=== PATIENT | female | born 1950 | race Caucasian/White ===

== ENCOUNTER 2017-03-29 09:52 | Inpatient (IN) | payer OTHER ==
--- NOTE | 2017-03-29 10:12 | PDOC ---
History of Present Illness - General Chief Complaint: Respiratory Stated Complaint: SOB Time Seen by Provider: 03/29/17 10:12 - History of Present Illness Initial Comments: 03/29/17 10:19 Ms. Rutledge is a 66 yo female w/ pmh of anxiety and htn who presents c/o a 4-5 day history of severe, non-productive cough with runny nose and subjective fever and chills. She says she has tried over the counter cold medicine and tylenol/advil without relief. She comes in today because she wanted to be checked out and "couldn't deal with it anymore." The patient denies chest pain, headache and dizziness. Denies nausea, vomit, diarrhea and constipation. Denies dysuria, frequency, urgency and hematuria. Allergies: NKDA Past History - Past Medical History Allergies/Adverse Reactions: Allergies Allergy/AdvReac Type Severity Reaction Status Date / Time No Known Allergies Allergy Verified 03/29/17 11:02 Home Medications: Ambulatory Orders Bupropion HCl [Wellbutrin -] 300 mg PO DAILY 03/29/17 Citalopram Hydrobromide [Celexa -] 10 mg PO DAILY 03/29/17 Ibuprofen [Motrin -] 400 mg PO DAILY 03/29/17 Lorazepam 2 mg PO DAILY 03/29/17 - Suicide/Smoking/Psychosocial Hx Smoking History: Never smoked Have you smoked in the past 12 months: No Hx Alcohol Use: No Drug/Substance Use Hx: No Review of Systems - Review of Systems Comments:: 03/29/17 10:23 GENERAL/CONSTITUTIONAL: Fever / chills as described above. +Also complains of feeling weaker than normal. HEAD, EYES, EARS, NOSE AND THROAT: No change in vision. No ear pain or discharge. No sore throat. CARDIOVASCULAR: No chest pain or shortness of breath RESPIRATORY: +Non-productive cough. No wheezing or hemoptysis. GASTROINTESTINAL: No nausea, vomiting, diarrhea or constipation. GENITOURINARY: No dysuria, frequency, or change in urination. MUSCULOSKELETAL: No joint or muscle swelling or pain. No neck or back pain. SKIN: No rash NEUROLOGIC: No headache, vertigo, loss of consciousness, or change in strength/ sensation. ENDOCRINE: No increased thirst. No abnormal weight change HEMATOLOGIC/LYMPHATIC: No anemia, easy bleeding, or history of blood clots. ALLERGIC/IMMUNOLOGIC: No hives or skin allergy. *Physical Exam - Vital Signs Last Vital Signs Temp Pulse Resp BP Pulse Ox 98.2 F 97 H 19 98/78 95 03/29/17 10:08 03/29/17 10:08 03/29/17 10:08 03/29/17 10:08 03/29/17 10:08 - Physical Exam Comments: 03/29/17 10:25 GENERAL: Awake, alert, and fully oriented, in no acute distress HEAD: No signs of trauma, normocephalic, atraumatic EYES: PERRLA, EOMI, sclera anicteric, conjunctiva clear ENT: Auricles normal inspection, hearing grossly normal, nares patent, oropharynx clear without exudates. Moist mucosa NECK: Normal ROM, supple, no lymphadenopathy, JVD, or masses LUNGS: +Hacking cough appreciated on exam. Diffuse rhonchi noted throughout lung rutledge. HEART: Regular rate and rhythm, normal S1 and S2, no murmurs, rubs or gallops, peripheral pulses normal and equal bilaterally. ABDOMEN: Soft, nontender, normoactive bowel sounds. No guarding, no rebound. No masses EXTREMITIES: Normal inspection, Normal range of motion, no edema. No clubbing or cyanosis. NEUROLOGICAL: Cranial nerves II through XII grossly intact. Normal speech, normal gait, no focal sensorimotor deficits SKIN: Warm, Dry, normal turgor, no rashes or lesions noted. ED Treatment Course - LABORATORY CBC & Chemistry Diagram: 03/29/17 10:45 03/29/17 10:45 Medical Decision Making - Medical Decision Making 03/29/17 11:05 Initial labs revealed WBC of 23.9. This along with systolic BP in 80's prompted sepsis protocol workup. 03/29/17 12:03 CXR revealed lobar pneumonia, will admit patient to inpatient service for further care. *DC/Admit/Observation/Transfer Diagnosis at time of Disposition: Sepsis Qualifiers: Sepsis type: sepsis due to unspecified organism Qualified Code(s): A41.9 - Sepsis, unspecified organism - Discharge Dispostion Admit: Yes - Referrals - Patient Instructions - Post Discharge Activity
--- NOTE | 2017-03-29 10:18 | PDOC ---
Attending Attestation - Resident Resident Name: Adrian Velazco - HPI HPI: 03/29/17 16:41 Pt presents to the ED complaining of generalized malaise, along with productive cough and shortness of breath for one week. - Physicial Exam PE: 03/29/17 16:43 Agree with resident exam. + Crackles in the bases bilaterally. - Medical Decision Making 03/29/17 16:44 Pt presents to the ED complaining of generalized malaise, cough and shortness of breath. + PNA on chest xray. Patient was initially mildly hypotensive, improving in response to fluids. Will treat with zithromax and ceftriaxone and admit to medicine.
[2017-03-29] MEDS ORDERED: SODIUM CHLORIDE 1,000 ML IV STA ×3 (10:28→11:30)
[2017-03-29] MEDS ORDERED: ALBUTEROL SO4 2.5/IPRATROPIUM 0.5 INH SOL 3 ML VIAL.NEB. NEB ONE (10:28)
[2017-03-29 10:56] LABS: MCH 29.9 pg (25.7-33.7); MCHC 33.4 g/dl (32.0-36.0); MEAN CELL VOLUME 89.3 fl (80-96); PLATELET COUNT 200 K/MM3 (134-434); WHITE BLOOD COUNT 23.9 K/mm3 (4.0-10.0)
[2017-03-29 11:14] LABS: ALK PHOS 294 U/L (45-117); ANION GAP 11 (8-16); BILIRUBIN,TOTAL 1.9 mg/dL (0.2-1.0); CALCIUM 8.4 mg/dL (8.5-10.1); CO2 24 mmol/L (21-32); GLUCOSE,RANDOM 76 mg/dL (74-106); SGOT/AST 24 U/L (15-37); SGPT/ALT 33 U/L (12-78); TOT PROT 5.1 g/dl (6.4-8.2)
[2017-03-29 11:30] LABS: VENOUS BLOOD GAS HCO3 21.1 meq/L (19-25); VENOUS PH 7.38 (7.32-7.42)
[2017-03-29 11:33] LABS: INR 1.19 (0.82-1.09); PROTHROMBIN TIME (PATIENT) 13.5 SEC (9.98-11.88)
[2017-03-29 11:34] LABS: CPK 42 IU/L (26-192)
[2017-03-29] MEDS ORDERED: CEFTRIAXONE 1 GM in DEXTROSE 5%-WATER - 100 ML IVPB ONE (11:34)
[2017-03-29] MEDS ORDERED: AZITHROMYCIN 500 MG TABLET PO ONE (11:35)
[2017-03-29 11:36] LABS: ACTIVATED PTT 34.4 SECONDS (26.9-34.4)
[2017-03-29] MEDS ORDERED: AZITHROMYCIN 500 MG TABLET ONE (11:40)
[2017-03-29 11:49] LABS: TROPONIN I < 0.02 ng/ml (0.00-0.05)
[2017-03-29 12:52] LABS: PLATELET COMMENTS NO CLUMPING NOTED; PLATELET ESTIMATE ADEQUATE
--- NOTE | 2017-03-29 13:27 | EKG ---
Test Reason : Blood Pressure : / mmHG Vent. Rate : 091 BPM Atrial Rate : 091 BPM P-R Int : 156 ms QRS Dur : 094 ms QT Int : 388 ms P-R-T Axes : 035 -12 033 degrees QTc Int : 477 ms NORMAL SINUS RHYTHM WITH SINUS ARRHYTHMIA NORMAL ECG NO PREVIOUS ECGS AVAILABLE Confirmed by AMINAH MINAYA MD ([id number]) on 03/29/2017 1:27:05 PM Referred By: Confirmed By:AMINAH MINAYA MD
[2017-03-29 14:39] VITALS: BMI 32.1
--- NOTE | 2017-03-29 17:42 | HP ---
Admitting History and Physical - Primary Care Physician PCP: Fermin Jurado - Admission History of Present Illness: Ms. Mcdowell is a 66 yo female w/ pmh of anxiety and htn who presents c/o a 4-5 day history of severe, non-productive cough with runny nose and subjective fever and chills. She says she has tried over the counter cold medicine and tylenol/advil without relief. She comes in today because she wanted to be checked out and "couldn't deal with it anymore." - Past Medical History Psych: Yes: Anxiety - Smoking History Smoking history: Never smoked Have you smoked in the past 12 months: No - Alcohol/Substance Use Hx Alcohol Use: No Home Medications - Allergies Allergies/Adverse Reactions: Allergies Allergy/AdvReac Type Severity Reaction Status Date / Time No Known Allergies Allergy Verified 03/29/17 11:02 - Home Medications Home Medications: Ambulatory Orders Bupropion HCl [Wellbutrin -] 300 mg PO DAILY 03/29/17 Citalopram Hydrobromide [Celexa -] 10 mg PO DAILY 03/29/17 Ibuprofen [Motrin -] 800 mg PO BID 03/29/17 Lorazepam 2 mg PO HS 03/29/17 Physical Examination Vital Signs: Vital Signs Temperature 98.7 F 03/29/17 14:36 Pulse Rate 89 03/29/17 14:36 Respiratory Rate 21 03/29/17 14:36 Blood Pressure 101/65 03/29/17 14:36 O2 Sat by Pulse Oximetry (%) 96 03/29/17 14:55 Constitutional: Yes: No Distress HENT: Yes: Atraumatic Neck: Yes: Supple Cardiovascular: Yes: Regular Rate and Rhythm Respiratory: Yes: Rhonchi Gastrointestinal: Yes: Normal Bowel Sounds Extremities: Yes: WNL Neurological: Yes: Alert, Oriented Labs: CBC, BMP 03/29/17 10:45 03/29/17 10:45 Problem List - Problems (1) Sepsis Code(s): A41.9 - SEPSIS, UNSPECIFIED ORGANISM Qualifiers: Sepsis type: sepsis due to unspecified organism Qualified Code(s): A41.9 - Sepsis, unspecified organism Assessment/Plan Laboratory Tests 03/29/17 03/29/17 03/29/17 10:45 10:45 11:00 WBC 23.9 H RBC 3.74 Hgb 11.2 Hct 33.4 MCV 89.3 MCH 29.9 MCHC 33.4 RDW 14.0 Plt Count 200 MPV 10.0 Neutrophils % No Result Required. Neutrophils % (Manual) 86.0 H Band Neutrophils % 7.0 Lymphocytes % No Result Required. Lymphocytes % (Manual) 4.0 L Monocytes % (Manual) 3 L Eosinophils % (Manual) 0.0 Basophils % (Manual) 0.0 Platelet Estimate Adequate Platelet Comment No clumping noted PT with INR 13.50 H INR 1.19 H PTT (Actin FS) 34.4 VBG pH POC VBG pCO2 POC VBG pO2 Mixed VBG HCO3 Sodium 135 L Potassium 3.5 Chloride 100 Carbon Dioxide 24 Anion Gap 11 BUN 40 H Creatinine 2.0 H Creat Clearance w eGFR 25.01 Random Glucose 76 Lactic Acid Calcium 8.4 L Total Bilirubin 1.9 H AST 24 ALT 33 Alkaline Phosphatase 294 H Creatine Kinase 42 Troponin I < 0.02 Total Protein 5.1 L Albumin 2.0 L Blood Type Antibody Screen 03/29/17 03/29/17 03/29/17 11:10 11:26 11:30 WBC RBC Hgb Hct MCV MCH MCHC RDW Plt Count MPV Neutrophils % Neutrophils % (Manual) Band Neutrophils % Lymphocytes % Lymphocytes % (Manual) Monocytes % (Manual) Eosinophils % (Manual) Basophils % (Manual) Platelet Estimate Platelet Comment PT with INR INR PTT (Actin FS) VBG pH 7.38 POC VBG pCO2 36.7 L POC VBG pO2 46.3 Mixed VBG HCO3 21.1 Sodium Potassium Chloride Carbon Dioxide Anion Gap BUN Creatinine Creat Clearance w eGFR Random Glucose Lactic Acid 1.6 Calcium Total Bilirubin AST ALT Alkaline Phosphatase Creatine Kinase Troponin I Total Protein Albumin Blood Type A POSITIVE Antibody Screen Negative Active Medications Generic Name Dose Route Start Last Admin Trade Name Freq PRN Reason Stop Dose Admin Bupropion HCl 300 mg 03/30/17 10:00 Wellbutrin - PO DAILY [facility] Citalopram Hydrobromide 10 mg 03/30/17 10:00 Celexa - PO DAILY [facility] Azithromycin 500 mg/ Dextrose 250 mls @ 250 mls/hr 03/30/17 10:00 IVPB DAILY [facility] CEFTRIAXONE 1 G/50 ML PREMIX 1 mls @ 200 mls/hr 03/30/17 10:00 Ceftriaxone 1 Gm-D5w Bag IVPB 03/30/17 11:59 DAILY [facility] Lorazepam 2 mg 03/29/17 22:00 Ativan - PO HS [facility]
[2017-03-29 19:31] LABS: URINE APPEARANCE CLEAR; URINE BILIRUBIN NEGATIVE (NEGATIVE); URINE BLOOD 1+ (NEGATIVE); URINE COLOR YELLOW; URINE GLUCOSE (UA) NEGATIVE (NEGATIVE); URINE KETONE NEGATIVE (NEGATIVE); URINE NITRITE NEGATIVE (NEGATIVE); URINE PROTEIN NEGATIVE (NEGATIVE); URINE UROBILINOGEN NEGATIVE mg/dL (0.2-1.0)
[2017-03-29] MEDS: LORazepam 1 MG TABLET PO SCH (21:24)
[2017-03-29 22:16] LABS: URINE LEUK ESTERASE Negative (NEGATIVE)
[2017-03-30] MEDS ORDERED: PT OWN MED DRAWER 7, Y5N ONE (09:41)
[2017-03-30] MEDS ORDERED: CEFTRIAXONE 1 G/50 ML PREMIX 1 ML IVPB SCH (10:00)
[2017-03-30] MEDS: AZITHROMYCIN IVPB 500 MG in DEXTROSE 5%-WATER - 250 ML IVPB SCH (10:20)
[2017-03-30] MEDS: CITALOPRAM HYDROBROMIDE 10 MG TABLET (FP) PO SCH (10:21)
[2017-03-30] MEDS ORDERED: cefTRIAXone 1 GM/50 ML BAG (PRE-DOCKED) IVPB ONE (12:16)
[2017-03-30 12:41] LABS: MCH 29.9 pg (25.7-33.7); MCHC 33.7 g/dl (32.0-36.0); MEAN CELL VOLUME 88.8 fl (80-96); MEAN PLT VOLUME 9.9 fl (7.5-11.1); PLATELET COUNT 178 K/MM3 (134-434); WHITE BLOOD COUNT 17.3 K/mm3 (4.0-10.0)
--- NOTE | 2017-03-30 12:43 | CON.ID ---
Consult Consult Specialty:: Infectious Disease Reason for Consultation:: PNA - History of Present Illness History of Present Illness: Pt seen and examined, notes and labs reviewed. This is a 66 y.o female with history of anxiety and asthma presenting from the community with complaints of non-productive cough, rhinorrhea, diaphoresis, subjective fever,and malaise. States symptoms began 5 days ago and has progressively gotten worse. She also says that she was taking asthma inhalers before but stopped because she couldn' t afford it. She denies any recent travel but her son had a "cold" recently. She denies any previous hospitalization. In the ER she was noted to have hypotension and tachycardia and lab work reveals a significant elevation in wbc count and elevated BUN and Creatinine. She was started on antibiotics and IV fluids. Currently with cough and pleuritic chest pain but remains afebrile and alert. Denies having any other complaints. - History Source History Provided By: Patient Limitations to Obtaining History: No Limitations - Past Medical History [employer]: No: Alzheimer's, CVA, Dementia, Migraine, Multiple Sclerosis, Peripheral Neuropathy, Parkinson's, Seizure, Syncope, TIA, Vertigo, Other Cardio/Vascular: No: AFIB, Aneurysm, Aortic Insufficiency, Aortic Stenosis, CAD , CHF, Deep Vein Thrombosis, HTN, Hyperlipdemia, IA, Mitral Insufficiency, Mitral Stenosis, Murmur, Pulmonary Hypertension, Other Pulmonary: Yes: Asthma Gastrointestinal: No: Ascites, Cancer, Constipation, Crohn's Disease, Diverticulitis, Diverticulosis, Esophageal Varices, Gastritis, GERD, GI Bleed, Hemorrhoids, Hiatal Hernia, Inflamatory Bowel Disease, Irritable Bowel Disease, Pancreatitis, Peptic Ulcer Disease, Ulcerative Colitis, Other Hepatobiliary: No: Cirrhosis, Cholelithiasis, Cholecystitis, Choledocholithiasis , Hepatitis A, Hepatitis B, Hepatitis C, Other Renal/: No: Renal Failure, Renal Inusuff, BPH, Cancer, Hematuria, Hemodialysis , Neurogenic Bladder, Renal Calculi, UTI, Other Heme/Onc: No: Anemia, B12 Deficiency, Bleeding Disorder, Cancer, Current Chemotherapy, Current Radiation Therapy, Hemochromatosis, Hypercoaguable State, Myeloproliferative Synd, Sickle Cell Disease, Sickle Cell Trait, Thrombocytopenia, Other Infectious Disease: No: AIDS, C-Diff, Herpes Zoster, HIV, MRSA, STD's, Tuberculosis, VREF, Other Psych: Yes: Anxiety Musculoskeletal: No: Bursitis, Chronic low back pain, Hemiparesis, Hemiplegia, Osteoarthritis, Paraplegia, Other Rheumatology: No: Fibromyalgia, Gout, Lupus, Rheumatoid Arthritis, Sarcoidosis, Vasculitis, Other ENT: No: Allergic Rhinitis, Sinusitis, Other Endocrine: No: Scott's Disease, Court's Disease, Diabetes Insipidus, Diabetes Mellitus, Hyperparathyroidism, Hyperthyroidism, Hypothyroidism, Osteopenia, SIADH, Other Dermatology: No: Basal Cell, Cellulitis, Eczema, Melanoma, Psoriasis, Squamous Cell, Other - Past Surgical History Past Surgical History: Yes: None - Alcohol/Substance Use Hx Alcohol Use: No - Smoking History Smoking history: Never smoked Have you smoked in the past 12 months: No Home Medications - Allergies Allergies/Adverse Reactions: Allergies Allergy/AdvReac Type Severity Reaction Status Date / Time No Known Allergies Allergy Verified 03/29/17 11:02 - Home Medications Home Medications: Ambulatory Orders Bupropion HCl [Wellbutrin -] 300 mg PO DAILY 03/29/17 Citalopram Hydrobromide [Celexa -] 10 mg PO DAILY 03/29/17 Ibuprofen [Motrin -] 800 mg PO BID 03/29/17 Lorazepam 2 mg PO HS 03/29/17 Review of Systems - Review of Systems Constitutional: reports: Malaise, Other (diaphoresis) Eyes: reports: No Symptoms HENT: reports: Nasal Congestion Neck: reports: No Symptoms Cardiovascular: reports: No Symptoms Respiratory: reports: Cough, Wheezing Gastrointestinal: reports: No Symptoms Genitourinary: reports: Other (incontinence due to cough) Breasts: reports: No Symptoms Reported Musculoskeletal: reports: No Symptoms Integumentary: reports: No Symptoms Neurological: reports: No Symptoms Endocrine: reports: No Symptoms Hematology/Lymphatic: reports: No Symptoms Psychiatric: reports: Anxiety Physical Exam Vital Signs: Vital Signs Temperature 98.6 F 03/30/17 06:30 Pulse Rate 88 03/30/17 06:30 Respiratory Rate 20 03/30/17 06:30 Blood Pressure 120/64 03/30/17 06:30 O2 Sat by Pulse Oximetry (%) 96 03/29/17 22:00 Constitutional: Yes: No Distress Eyes: Yes: WNL HENT: Yes: WNL Neck: Yes: Supple, Trachea Midline Cardiovascular: Yes: Tachycardia Respiratory: Yes: Cough, Rales (bases), Wheezes Gastrointestinal: Yes: Normal Bowel Sounds, Soft. No: WNL, Abdomen, Obese, Ascites, Distention, Hematemesis, Hemorrhoids, Hepatomegaly, Hernia, Hyperactive Bowel Sounds, Hypoactive Bowel Sounds, Melena, Palpable Mass, Pulsatile Mass, Rectal Bleeding, Splenomegaly, Tenderness, Tenderness, Epigastrium, Tenderness, Rebound, Vomiting, Other Renal/: No: WNL, Anuria, Bladder Distention, CVA Tenderness - Left, CVA Tenderness - Right, Urias Present, Hematuria, Incontinence, Menses Present, Oliguria, Polyuria, , Scrotal Edema, Urethral Discharge, Vaginal Bleeding, Vaginal Discharge, Other Extremities: No: WNL, Amputation, Calf Tenderness, Cold, Cool, Cyanosis, Deformity, Delayed Capillary Refill, Erythema, External Rotation, Internal Rotation, Pallor, Shortened, Other Integumentary: No: WNL, Body Piercing, Bruising, Erythema, Incision, Jaundice, Laceration, Petechiae, Pressure Ulcer, Rash, Skin Tear, Tattoos, Tenting, Onychomycosis, Venous Stasis Changes, Other Neurological: Yes: WNL, Alert, Oriented Psychiatric: Yes: Alert Labs: CBC,CMP WBC 17.3 K/mm3 (4.0-10.0) H 03/30/17 12:10 RBC 3.29 M/mm3 (3.60-5.2) L 03/30/17 12:10 Hgb 9.9 GM/dL (10.7-15.3) L D 03/30/17 12:10 Hct 29.2 % (32.4-45.2) L 03/30/17 12:10 MCV 88.8 fl (80-96) 03/30/17 12:10 MCH 29.9 pg (25.7-33.7) 03/30/17 12:10 MCHC 33.7 g/dl (32.0-36.0) 03/30/17 12:10 RDW 14.0 % (11.6-15.6) 03/30/17 12:10 Plt Count 178 K/MM3 (134-434) 03/30/17 12:10 MPV 9.9 fl (7.5-11.1) 03/30/17 12:10 Neutrophils % No Result Required. 03/30/17 12:10 Neutrophils % (Manual) 86.0 % (42.8-82.8) H 03/29/17 10:45 Band Neutrophils % 7.0 % 03/29/17 10:45 Lymphocytes % No Result Required. 03/30/17 12:10 Lymphocytes % (Manual) 4.0 % (8-40) L 03/29/17 10:45 Monocytes % (Manual) 3 % (3.8-10.2) L 03/29/17 10:45 Eosinophils % (Manual) 0.0 % (0-4.5) 03/29/17 10:45 Basophils % (Manual) 0.0 % (0-2.0) 03/29/17 10:45 Platelet Estimate Adequate 03/29/17 10:45 Platelet Comment No clumping noted 03/29/17 10:45 Sodium 135 mmol/L (136-145) L 03/29/17 10:45 Potassium 3.5 mmol/L (3.5-5.1) 03/29/17 10:45 Chloride 100 mmol/L (98-107) 03/29/17 10:45 Carbon Dioxide 24 mmol/L (21-32) 03/29/17 10:45 Anion Gap 11 (8-16) 03/29/17 10:45 BUN 40 mg/dL (7-18) H 03/29/17 10:45 Creatinine 2.0 mg/dL (0.55-1.02) H 03/29/17 10:45 Creat Clearance w eGFR 25.01 (>60) 03/29/17 10:45 Random Glucose 76 mg/dL (74-106) 03/29/17 10:45 Lactic Acid 1.6 mmol/L (0.4-2.0) 03/29/17 11:10 Calcium 8.4 mg/dL (8.5-10.1) L 03/29/17 10:45 Total Bilirubin 1.9 mg/dL (0.2-1.0) H 03/29/17 10:45 AST 24 U/L (15-37) 03/29/17 10:45 ALT 33 U/L (12-78) 03/29/17 10:45 Alkaline Phosphatase 294 U/L (45-117) H 03/29/17 10:45 Creatine Kinase 42 IU/L (26-192) 03/29/17 10:45 Troponin I < 0.02 ng/ml (0.00-0.05) 03/29/17 10:45 Total Protein 5.1 g/dl (6.4-8.2) L 03/29/17 10:45 Albumin 2.0 g/dl (3.4-5.0) L 03/29/17 10:45 Microbiology 03/29/17 11:30 Blood - Peripheral Venous Blood Culture - Preliminary NO GROWTH OBTAINED AFTER 24 HOURS, INCUBATION TO CONTINUE FOR 4 DAYS. 03/29/17 11:30 Blood - Peripheral Venous Blood Culture - Preliminary NO GROWTH OBTAINED AFTER 24 HOURS, INCUBATION TO CONTINUE FOR 4 DAYS. 03/29/17 10:45 Nasopharyngeal Swab Influenza Types A,B Antigen (DEV) - Final 03/29/17 10:45 Nasopharyngeal Swab - Final Imaging - Results Chest X-ray: Report Reviewed (Rt lobar pneumonia) Problem List - Problems (1) Community acquired pneumonia Code(s): J18.9 - PNEUMONIA, UNSPECIFIED ORGANISM (2) Acute kidney injury Code(s): N17.9 - ACUTE KIDNEY FAILURE, UNSPECIFIED (3) Asthma Code(s): J45.909 - UNSPECIFIED ASTHMA, UNCOMPLICATED (4) Sepsis Code(s): A41.9 - SEPSIS, UNSPECIFIED ORGANISM Qualifiers: Sepsis type: sepsis due to unspecified organism Qualified Code(s): A41.9 - Sepsis, unspecified organism Assessment/Plan 66 y.o. female with history of anxiety and asthma presenting with cough, malaise , pleuritic chest pain, hypotension, leukocytosis, RAMY, lobar pneumonia - increase dose of ceftriaxone, continue zithromax - hydration - monitor wbc (trending down), renal function, vitals - suggest bronchodilators - pt currently afebrile, appears stable will f/u
[2017-03-30 13:00] LABS: ANION GAP 9 (8-16); CALCIUM 7.5 mg/dL (8.5-10.1); CO2 22 mmol/L (21-32); CREATININE 1.1 mg/dL (0.55-1.02); GLUCOSE,RANDOM 104 mg/dL (74-106)
[2017-03-30] MEDS ORDERED: CEFTRIAXONE 1 GM in DEXTROSE 5%-WATER - 100 ML IVPB ONE (13:45)
[2017-03-30] MEDS: guaiFENesin 200 MG/10 ML 10 ML UNIT-DOSE CUPS PO PRN ×2 (13:57→17:35)
[2017-03-30 14:19] LABS: TOTAL CELLS COUNTED 100
[2017-03-30 14:21] LABS: METAMYELOCYTE 5 % (0-2); MYELOCYTE 4 % (0-2); PLATELET ESTIMATE ADEQUATE; PROMYELOCYTE 1 % (0-2)
--- NOTE | 2017-03-30 19:02 | PN ---
Progress Note, Physician History of Present Illness: cough is not getting better - Current Medication List Current Medications: Active Medications Bupropion HCl (Wellbutrin -) 300 mg PO DAILY [facility] Citalopram Hydrobromide (Celexa -) 10 mg PO DAILY [facility] Last Admin: 03/30/17 10:21 Dose: 10 mg Guaifenesin (Robitussin -) 10 ml PO Q4H PRN PRN Reason: COUGH Last Admin: 03/30/17 17:35 Dose: 10 ml Azithromycin 500 mg/ Dextrose 250 mls @ 250 mls/hr IVPB DAILY [facility] Last Admin: 03/30/17 10:20 Dose: 250 mls/hr Ceftriaxone Sodium 2 gm/ (Dextrose) 100 mls @ 200 mls/hr IVPB DAILY [facility] Lorazepam (Ativan -) 2 mg PO HS [facility] Last Admin: 03/29/17 21:24 Dose: 2 mg - Objective Vital Signs: Vital Signs Temperature 98.7 F 03/30/17 17:23 Pulse Rate 79 03/30/17 17:23 Respiratory Rate 20 03/30/17 17:23 Blood Pressure 96/55 03/30/17 17:23 O2 Sat by Pulse Oximetry (%) 98 03/30/17 09:00 Constitutional: Yes: No Distress HENT: Yes: Atraumatic Neck: Yes: Supple Cardiovascular: Yes: Regular Rate and Rhythm Respiratory: Yes: CTA Bilaterally Gastrointestinal: Yes: Normal Bowel Sounds Extremities: Yes: WNL Neurological: Yes: Alert, Oriented Labs: CBC, BMP 03/30/17 12:10 03/30/17 12:10 INR, PTT INR 1.19 (0.82-1.09) H 03/29/17 11:00 Problem List - Problems (1) Sepsis Assessment/Plan: ON IV ABX will start ivf as bp is low although her urine out put and po intake is sufficient prn cough syrup Code(s): A41.9 - SEPSIS, UNSPECIFIED ORGANISM Qualifiers: Sepsis type: sepsis due to unspecified organism Qualified Code(s): A41.9 - Sepsis, unspecified organism
[2017-03-30] MEDS: SODIUM CHLORIDE 1,000 ML IV SCH (19:30)
[2017-03-30] MEDS: LORazepam 1 MG TABLET PO SCH (21:15)
[2017-03-31 08:00] LABS: MCH 30.1 pg (25.7-33.7); MCHC 33.7 g/dl (32.0-36.0); MEAN CELL VOLUME 89.3 fl (80-96); MEAN PLT VOLUME 9.5 fl (7.5-11.1); PLATELET COUNT 190 K/MM3 (134-434); WHITE BLOOD COUNT 17.6 K/mm3 (4.0-10.0)
[2017-03-31 08:45] LABS: ALBUMIN 1.6 g/dl (3.4-5.0); ANION GAP 9 (8-16); CALCIUM 7.8 mg/dL (8.5-10.1); CO2 24 mmol/L (21-32); CREATININE 0.9 mg/dL (0.55-1.02); GLUCOSE,RANDOM 88 mg/dL (74-106); SGOT/AST 47 U/L (15-37); SGPT/ALT 42 U/L (12-78)
[2017-03-31 08:47] LABS: ALK PHOS 517 U/L (45-117); BILIRUBIN,TOTAL 0.7 mg/dL (0.2-1.0); TOT PROT 4.6 g/dl (6.4-8.2)
[2017-03-31] MEDS ORDERED: PT OWN MED DRAWER 7, Y5N ONE (10:15)
[2017-03-31] MEDS: AZITHROMYCIN IVPB 500 MG in DEXTROSE 5%-WATER - 250 ML IVPB SCH (10:31)
[2017-03-31] MEDS: CITALOPRAM HYDROBROMIDE 10 MG TABLET (FP) PO SCH (10:33)
[2017-03-31] MEDS: SODIUM CHLORIDE 1,000 ML IV SCH ×2 (10:33→21:31)
[2017-03-31] MEDS: guaiFENesin 200 MG/10 ML 10 ML UNIT-DOSE CUPS PO PRN (10:34)
[2017-03-31 12:02] LABS: TOTAL CELLS COUNTED 100
[2017-03-31 12:03] LABS: METAMYELOCYTE 6 % (0-2); MYELOCYTE 7 % (0-2); NUCLEATED RED BLOOD CELL 1 % (0-0); TOXIC GRANULATION 2+
[2017-03-31] MEDS: CEFTRIAXONE 2 GM in DEXTROSE 5%-WATER - 100 ML IVPB SCH (12:15)
--- NOTE | 2017-03-31 15:36 | CON.PULM ---
Consult Consult Specialty:: PULMONARY Referred by:: ELVIA Reason for Consultation:: COUGH/FEVER/SPUTUM - History of Present Illness History of Present Illness: Ms. Mcdowell is a 66 yo female w/ pmh of anxiety and htn who presents c/o a 4-5 day history of severe, non-productive cough with runny nose and subjective fever and chills. She says she has tried over the counter cold medicine and tylenol/advil without relief. She comes in today because she wanted to be checked out and "couldn't deal with it anymore."The patient admits to chest pain , headache and dizziness. Denies nausea, vomit, diarrhea and constipation. Denies dysuria, frequency, urgency and hematuria. - History Source History Provided By: Patient, Medical Record Limitations to Obtaining History: No Limitations - Past Medical History [employer]: No: Alzheimer's, CVA, Dementia, Migraine, Multiple Sclerosis, Peripheral Neuropathy, Parkinson's, Seizure, Syncope, TIA, Vertigo, Other Cardio/Vascular: No: AFIB, Aneurysm, Aortic Insufficiency, Aortic Stenosis, CAD , CHF, Deep Vein Thrombosis, HTN, Hyperlipdemia, CO, Mitral Insufficiency, Mitral Stenosis, Murmur, Pulmonary Hypertension, Other Pulmonary: Yes: Asthma Gastrointestinal: No: Ascites, Cancer, Constipation, Crohn's Disease, Diverticulitis, Diverticulosis, Esophageal Varices, Gastritis, GERD, GI Bleed, Hemorrhoids, Hiatal Hernia, Inflamatory Bowel Disease, Irritable Bowel Disease, Pancreatitis, Peptic Ulcer Disease, Ulcerative Colitis, Other Hepatobiliary: No: Cirrhosis, Cholelithiasis, Cholecystitis, Choledocholithiasis , Hepatitis A, Hepatitis B, Hepatitis C, Other Renal/: No: Renal Failure, Renal Inusuff, BPH, Cancer, Hematuria, Hemodialysis , Neurogenic Bladder, Renal Calculi, UTI, Other Heme/Onc: No: Anemia Infectious Disease: No: AIDS, C-Diff, Herpes Zoster, HIV, MRSA, STD's, Tuberculosis, VREF, Other Psych: Yes: Anxiety Musculoskeletal: No: Bursitis, Chronic low back pain, Hemiparesis, Hemiplegia, Osteoarthritis, Paraplegia, Other Rheumatology: No: Fibromyalgia, Gout, Lupus, Rheumatoid Arthritis, Sarcoidosis, Vasculitis, Other ENT: No: Allergic Rhinitis, Sinusitis, Other Endocrine: No: [place]'s Disease, [place]'s Disease, Diabetes Insipidus, Diabetes Mellitus, Hyperparathyroidism, Hyperthyroidism, Hypothyroidism, Osteopenia, SIADH, Other Dermatology: No: Basal Cell, Cellulitis, Eczema, Melanoma, Psoriasis, Squamous Cell, Other - Past Surgical History Past Surgical History: Yes: None - Alcohol/Substance Use Hx Alcohol Use: No - Smoking History Smoking history: Never smoked Have you smoked in the past 12 months: No - Social History Usual Living Arrangement: With Child History of Recent Travel: No Home Medications - Allergies Allergies/Adverse Reactions: Allergies Allergy/AdvReac Type Severity Reaction Status Date / Time No Known Allergies Allergy Verified 03/29/17 11:02 - Home Medications Home Medications: Ambulatory Orders Bupropion HCl [Wellbutrin -] 300 mg PO DAILY 03/29/17 Citalopram Hydrobromide [Celexa -] 10 mg PO DAILY 03/29/17 Ibuprofen [Motrin -] 800 mg PO BID 03/29/17 Lorazepam 2 mg PO HS 03/29/17 Family Disease History - Family Disease History Family History: Unremarkable Review of Systems - Review of Systems Constitutional: reports: Chills, Fever, Lethargy, Loss of Appetite, Weakness Eyes: denies: Blurred Vision HENT: denies: Difficult Swallowing Neck: denies: Decreased ROM Cardiovascular: reports: Chest Pain Respiratory: reports: Cough, Exercise Intolerance, SOB, SOB on Exertion, Wheezing. denies: Hemoptysis Gastrointestinal: denies: Abdominal Pain Genitourinary: reports: No Symptoms Breasts: reports: No Symptoms Reported Musculoskeletal: reports: No Symptoms Integumentary: reports: No Symptoms Neurological: reports: No Symptoms Physical Exam Vital Sings: Vital Signs Temperature 98.8 F 03/31/17 14:26 Pulse Rate 75 03/31/17 14:26 Respiratory Rate 18 03/31/17 14:26 Blood Pressure 115/51 03/31/17 14:26 O2 Sat by Pulse Oximetry (%) 98 03/30/17 21:00 Constitutional: Yes: Calm Eyes: Yes: EOM Intact HENT: Yes: Normocephalic Neck: Yes: Trachea Midline Cardiovascular: Yes: Regular Rate and Rhythm Respiratory: Yes: Rales, Rhonchi, Other (EGOPHONY). No: Wheezes ...Inspection: Yes: WNL Gastrointestinal: Yes: Normal Bowel Sounds Edema: No Integumentary: Yes: WNL Neurological: Yes: WNL ...Motor Strength: WNL Psychiatric: Yes: Alert Labs: CBC, BMP 03/31/17 06:50 03/31/17 06:50 REST OF LABS NOTED Imaging - Results Chest X-ray: Report Reviewed, Image Reviewed Problem List - Problems (1) Asthma Code(s): J45.909 - UNSPECIFIED ASTHMA, UNCOMPLICATED (2) Community acquired pneumonia Code(s): J18.9 - PNEUMONIA, UNSPECIFIED ORGANISM (3) Sepsis Code(s): A41.9 - SEPSIS, UNSPECIFIED ORGANISM Qualifiers: Sepsis type: sepsis due to unspecified organism Qualified Code(s): A41.9 - Sepsis, unspecified organism Assessment/Plan CABP/PLEURITIC COMPONENT + URINARY PNEUMOCOCCAL ANTIGEN ANXIETY DISORDER CHECK BLOOD CULTURES CONTINUE ANTIBIOTICS O2 TO KEEP SATURATION GREATER THAN 90% ANALGESICS FOR PLEURITIC CHEST PAIN DVT/PUD PROPHYLAXSIS SHOULD HAVE CT CHEST PRIOR TO DISCHARGE OUTPATIENT F/U IMAGING 4 WEEKS TO DOCUMENT RESOLUTION WILL FOLLOW THANK YOU Jessica PAYNE MD
[2017-03-31] MEDS: guaiFENesin/CODEINE 10 ML UNIT-DOSE CUPS PO PRN (16:50)
--- NOTE | 2017-03-31 17:22 | PN ---
Progress Note, Physician History of Present Illness: coughing... - Current Medication List Current Medications: Active Medications Bupropion HCl (Wellbutrin -) 450 mg PO DAILY [facility] Citalopram Hydrobromide (Celexa -) 40 mg PO DAILY [facility] Guaifenesin (Robitussin -) 10 ml PO Q4H PRN PRN Reason: COUGH Last Admin: 03/31/17 10:34 Dose: 10 ml Guaifenesin/Codeine Phosphate (Robitussin Ac -) 10 ml PO Q8H PRN PRN Reason: COUGH Last Admin: 03/31/17 16:50 Dose: 10 ml Azithromycin 500 mg/ Dextrose 250 mls @ 250 mls/hr IVPB DAILY [facility] Last Admin: 03/31/17 10:31 Dose: 250 mls/hr Ceftriaxone Sodium 2 gm/ (Dextrose) 100 mls @ 200 mls/hr IVPB DAILY [facility] Last Admin: 03/31/17 12:15 Dose: 200 mls/hr Sodium Chloride (Normal Saline -) 1,000 mls @ 75 mls/hr IV ASDIR [facility] Last Admin: 03/31/17 10:33 Dose: 75 mls/hr Ibuprofen (Motrin -) 800 mg PO BID [facility] Lorazepam (Ativan -) 2 mg PO HS [facility] Last Admin: 03/30/17 21:15 Dose: 2 mg - Objective Vital Signs: Vital Signs Temperature 98.8 F 03/31/17 14:26 Pulse Rate 75 03/31/17 14:26 Respiratory Rate 18 03/31/17 14:26 Blood Pressure 115/51 03/31/17 14:26 O2 Sat by Pulse Oximetry (%) 98 03/30/17 21:00 Constitutional: Yes: No Distress HENT: Yes: Atraumatic Neck: Yes: Supple Cardiovascular: Yes: Regular Rate and Rhythm Respiratory: Yes: Rhonchi Gastrointestinal: Yes: Normal Bowel Sounds Extremities: Yes: WNL Neurological: Yes: Alert, Oriented Labs: CBC, BMP 03/31/17 06:50 03/31/17 06:50 INR, PTT INR 1.19 (0.82-1.09) H 03/29/17 11:00 Problem List - Problems (1) Sepsis Assessment/Plan: ON IV ABX will start ivf as bp is low although her urine out put and po intake is sufficient Code(s): A41.9 - SEPSIS, UNSPECIFIED ORGANISM Qualifiers: Sepsis type: sepsis due to unspecified organism Qualified Code(s): A41.9 - Sepsis, unspecified organism (2) Community acquired pneumonia Assessment/Plan: cxs noted will get chest ct as per pulmonary recommendation Code(s): J18.9 - PNEUMONIA, UNSPECIFIED ORGANISM
[2017-03-31] MEDS ORDERED: CITALOPRAM HYDROBROMIDE 10 MG TABLET (FP) PO SCH (17:30)
--- NOTE | 2017-03-31 18:40 | PN ---
Progress Note, Physician History of Present Illness: Pt states she feels slightly better. Still with Rt sides pleuritic pain. Afebrile, without acute distress but still with cough. - Current Medication List Current Medications: Active Medications Bupropion HCl (Wellbutrin -) 450 mg PO DAILY [facility] Citalopram Hydrobromide (Celexa -) 40 mg PO DAILY [facility] Guaifenesin (Robitussin -) 10 ml PO Q4H PRN PRN Reason: COUGH Last Admin: 03/31/17 10:34 Dose: 10 ml Guaifenesin/Codeine Phosphate (Robitussin Ac -) 10 ml PO Q8H PRN PRN Reason: COUGH Last Admin: 03/31/17 16:50 Dose: 10 ml Azithromycin 500 mg/ Dextrose 250 mls @ 250 mls/hr IVPB DAILY [facility] Last Admin: 03/31/17 10:31 Dose: 250 mls/hr Ceftriaxone Sodium 2 gm/ (Dextrose) 100 mls @ 200 mls/hr IVPB DAILY [facility] Last Admin: 03/31/17 12:15 Dose: 200 mls/hr Sodium Chloride (Normal Saline -) 1,000 mls @ 75 mls/hr IV ASDIR REPLACED BY [facility] Last Admin: 03/31/17 10:33 Dose: 75 mls/hr Ibuprofen (Motrin -) 800 mg PO BID [facility] Lorazepam (Ativan -) 2 mg PO HS [facility] Last Admin: 03/30/17 21:15 Dose: 2 mg - Objective Vital Signs: Vital Signs Temperature 98.8 F 03/31/17 14:26 Pulse Rate 75 03/31/17 14:26 Respiratory Rate 18 03/31/17 14:26 Blood Pressure 115/51 03/31/17 14:26 O2 Sat by Pulse Oximetry (%) 98 03/30/17 21:00 Constitutional: Yes: No Distress Neck: Yes: Supple Cardiovascular: Yes: Regular Rate and Rhythm Respiratory: Yes: Rales (Rt) Gastrointestinal: Yes: Normal Bowel Sounds, Soft Genitourinary: Yes: WNL Musculoskeletal: Yes: WNL Extremities: Yes: WNL Integumentary: Yes: WNL Neurological: Yes: Alert, Oriented Labs: CBC, BMP 03/31/17 06:50 03/31/17 06:50 INR, PTT INR 1.19 (0.82-1.09) H 03/29/17 11:00 Urine Test Results Urine Color Yellow 03/29/17 17:20 Urine Appearance Clear 03/29/17 17:20 Urine pH 6.0 (5.0-8.0) 03/29/17 17:20 Ur Specific [place] 1.005 (1.001-1.035) 03/29/17 17:20 Urine Protein Negative (NEGATIVE) 03/29/17 17:20 Urine Glucose (UA) Negative (NEGATIVE) 03/29/17 17:20 Urine Ketones Negative (NEGATIVE) 03/29/17 17:20 Urine Blood 1+ (NEGATIVE) H 03/29/17 17:20 Urine Nitrite Negative (NEGATIVE) 03/29/17 17:20 Urine Bilirubin Negative (NEGATIVE) 03/29/17 17:20 Ur Leukocyte Esterase Negative (NEGATIVE) 03/29/17 17:20 Microbiology 03/29/17 11:30 Blood - Peripheral Venous Blood Culture - Preliminary NO GROWTH OBTAINED AFTER 48 HOURS, INCUBATION TO CONTINUE FOR 3 DAYS. 03/29/17 11:30 Blood - Peripheral Venous Blood Culture - Preliminary NO GROWTH OBTAINED AFTER 48 HOURS, INCUBATION TO CONTINUE FOR 3 DAYS. 03/30/17 18:00 Urine For Antigen Detection Legionella Antigen - Final 03/30/17 18:00 Urine For Antigen Detection Streptococcus pneumoniae Antigen (M - Final 03/29/17 18:02 Urine - Urine Clean Catch Urine Culture - Final NO GROWTH OBTAINED 03/29/17 10:45 Nasopharyngeal Swab Influenza Types A,B Antigen (DEV) - Final 03/29/17 10:45 Nasopharyngeal Swab - Final Problem List - Problems (1) Community acquired pneumonia Code(s): J18.9 - PNEUMONIA, UNSPECIFIED ORGANISM (2) Acute kidney injury Code(s): N17.9 - ACUTE KIDNEY FAILURE, UNSPECIFIED (3) Asthma Code(s): J45.909 - UNSPECIFIED ASTHMA, UNCOMPLICATED (4) Sepsis Code(s): A41.9 - SEPSIS, UNSPECIFIED ORGANISM Qualifiers: Sepsis type: sepsis due to unspecified organism Qualified Code(s): A41.9 - Sepsis, unspecified organism Assessment/Plan CAP - Streptococcal urinary Ag + Sepsis - leukocytosis improving, afebrile - continue current antibiotics - repeat cbc in a.m. continue supportive care
[2017-03-31] MEDS: buPROPion HCL 100 MG TABLET PO SCH (19:02)
[2017-03-31] MEDS: IBUPROFEN 400 MG TABLET (FP) PO SCH (21:28)
[2017-03-31] MEDS: DOCUSATE SODIUM 100 MG CAPSULE (FP) PO SCH (21:30)
[2017-03-31] MEDS: LORazepam 1 MG TABLET PO SCH (21:30)
[2017-04-01 08:11] LABS: MCH 30.1 pg (25.7-33.7); MCHC 33.9 g/dl (32.0-36.0); MEAN CELL VOLUME 88.8 fl (80-96); MEAN PLT VOLUME 9.1 fl (7.5-11.1); PLATELET COUNT 205 K/MM3 (134-434); RDW 14.4 % (11.6-15.6); WHITE BLOOD COUNT 14.4 K/mm3 (4.0-10.0)
[2017-04-01 08:40] LABS: ALBUMIN 1.5 g/dl (3.4-5.0); ANION GAP 7 (8-16); CO2 25 mmol/L (21-32); CREATININE 0.7 mg/dL (0.55-1.02); GLUCOSE,RANDOM 80 mg/dL (74-106); SGOT/AST 45 U/L (15-37); SGPT/ALT 51 U/L (12-78); TOT PROT 4.4 g/dl (6.4-8.2)
[2017-04-01 08:41] LABS: ALK PHOS 544 U/L (45-117)
[2017-04-01 09:47] LABS: METAMYELOCYTE 11 % (0-2); TOTAL CELLS COUNTED 100
[2017-04-01 09:48] LABS: MYELOCYTE 3 % (0-2); PLATELET ESTIMATE ADEQUATE
[2017-04-01] MEDS ORDERED: PT OWN MED DRAWER 7, Y5N ONE (10:09)
[2017-04-01] MEDS: CEFTRIAXONE 2 GM in DEXTROSE 5%-WATER - 100 ML IVPB SCH (10:10)
[2017-04-01] MEDS: IBUPROFEN 400 MG TABLET (FP) PO SCH ×2 (10:10→22:56)
[2017-04-01] MEDS: DOCUSATE SODIUM 100 MG CAPSULE (FP) PO SCH ×2 (10:11→22:56)
[2017-04-01] MEDS: CITALOPRAM HYDROBROMIDE 20 MG TABLET (FP) PO SCH (10:11)
[2017-04-01] MEDS: guaiFENesin/CODEINE 10 ML UNIT-DOSE CUPS PO PRN ×2 (10:17→22:56)
--- NOTE | 2017-04-01 11:47 | PN ---
Progress Note (short form) - Note Progress Note: PULMONARY Feels better. No fevers or chills. Still with right sided pleuritic pain. Last Vital Signs Temp Pulse Resp BP Pulse Ox 98.6 F 74 20 110/72 96 04/01/17 09:00 04/01/17 09:00 04/01/17 09:00 04/01/17 09:00 03/31/17 21:00 Gen: NAD at rest Heart: RRR Lung: scattered right sided rales Abd: soft, nontender Ext: no edema CBC, BMP 04/01/17 06:00 04/01/17 06:00 Active Medications Bupropion HCl (Wellbutrin Xl -) 450 mg PO DAILY [facility] Last Admin: 04/01/17 10:12 Dose: 450 mg Citalopram Hydrobromide (Celexa -) 40 mg PO DAILY [facility] Last Admin: 04/01/17 10:11 Dose: 40 mg Docusate Sodium (Colace -) 100 mg PO BID [facility] Last Admin: 04/01/17 10:11 Dose: 100 mg Guaifenesin (Robitussin -) 10 ml PO Q4H PRN PRN Reason: COUGH Last Admin: 03/31/17 10:34 Dose: 10 ml Guaifenesin/Codeine Phosphate (Robitussin Ac -) 10 ml PO Q8H PRN PRN Reason: COUGH Last Admin: 04/01/17 10:17 Dose: 10 ml Azithromycin 500 mg/ Dextrose 250 mls @ 250 mls/hr IVPB DAILY [facility] Last Admin: 03/31/17 10:31 Dose: 250 mls/hr Ceftriaxone Sodium 2 gm/ (Dextrose) 100 mls @ 200 mls/hr IVPB DAILY [facility] Last Admin: 04/01/17 10:10 Dose: 200 mls/hr Sodium Chloride (Normal Saline -) 1,000 mls @ 75 mls/hr IV ASDIR [facility] Last Admin: 03/31/17 21:31 Dose: 75 mls/hr Ibuprofen (Motrin -) 800 mg PO BID [facility] Last Admin: 04/01/17 10:10 Dose: 800 mg Lorazepam (Ativan -) 2 mg PO HS [facility] Last Admin: 03/31/17 21:30 Dose: 2 mg A/P Community Acquired Pneumonia +Strep Ag Anxiety - continue antibiotics - pain control - incentive spirometry - will need repeat CT imaging in 6-8 weeks to ensure resolution of infiltrates - DVT prophylaxis
[2017-04-01] MEDS: AZITHROMYCIN IVPB 500 MG in DEXTROSE 5%-WATER - 250 ML IVPB SCH (12:37)
--- NOTE | 2017-04-01 12:58 | EKG ---
Test Reason : Blood Pressure : / mmHG Vent. Rate : 083 BPM Atrial Rate : 083 BPM P-R Int : 146 ms QRS Dur : 092 ms QT Int : 394 ms P-R-T Axes : 043 -20 029 degrees QTc Int : 462 ms NORMAL SINUS RHYTHM INFERIOR INFARCT , AGE UNDETERMINED ABNORMAL ECG WHEN COMPARED WITH ECG OF 29-MAR-2017 11:27, INFERIOR INFARCT IS NOW PRESENT Confirmed by ANAMIKA ISLAS, VITALIY ([id number]) on 04/01/2017 12:58:18 PM Referred By: Confirmed By:VITALIY WILLSON MD
--- NOTE | 2017-04-01 16:17 | PN ---
Progress Note, Physician History of Present Illness: have constipation - Current Medication List Current Medications: Active Medications Bupropion HCl (Wellbutrin Xl -) 450 mg PO DAILY [facility] Last Admin: 04/01/17 10:12 Dose: 450 mg Citalopram Hydrobromide (Celexa -) 40 mg PO DAILY [facility] Last Admin: 04/01/17 10:11 Dose: 40 mg Docusate Sodium (Colace -) 100 mg PO BID [facility] Last Admin: 04/01/17 10:11 Dose: 100 mg Guaifenesin (Robitussin -) 10 ml PO Q4H PRN PRN Reason: COUGH Last Admin: 03/31/17 10:34 Dose: 10 ml Guaifenesin/Codeine Phosphate (Robitussin Ac -) 10 ml PO Q8H PRN PRN Reason: COUGH Last Admin: 04/01/17 10:17 Dose: 10 ml Azithromycin 500 mg/ Dextrose 250 mls @ 250 mls/hr IVPB DAILY [facility] Last Admin: 04/01/17 12:37 Dose: 250 mls/hr Ceftriaxone Sodium 2 gm/ (Dextrose) 100 mls @ 200 mls/hr IVPB DAILY [facility] Last Admin: 04/01/17 10:10 Dose: 200 mls/hr Sodium Chloride (Normal Saline -) 1,000 mls @ 75 mls/hr IV ASDIR [facility] Last Admin: 03/31/17 21:31 Dose: 75 mls/hr Ibuprofen (Motrin -) 800 mg PO BID [facility] Last Admin: 04/01/17 10:10 Dose: 800 mg Lorazepam (Ativan -) 2 mg PO HS [facility] Last Admin: 03/31/17 21:30 Dose: 2 mg - Objective Vital Signs: Vital Signs Temperature 98.2 F 04/01/17 15:57 Pulse Rate 77 04/01/17 15:57 Respiratory Rate 20 04/01/17 15:57 Blood Pressure 107/61 04/01/17 15:57 O2 Sat by Pulse Oximetry (%) 96 03/31/17 21:00 Constitutional: Yes: No Distress HENT: Yes: Atraumatic Neck: Yes: Supple Cardiovascular: Yes: Regular Rate and Rhythm Respiratory: Yes: Rhonchi Gastrointestinal: Yes: Normal Bowel Sounds Extremities: Yes: WNL Neurological: Yes: Alert, Oriented Labs: CBC, BMP 04/01/17 06:00 04/01/17 06:00 INR, PTT INR 1.19 (0.82-1.09) H 03/29/17 11:00 Problem List - Problems (1) Sepsis Assessment/Plan: ON IV ABX will start ivf as bp is low although her urine out put and po intake is sufficient prn cough syrup Code(s): A41.9 - SEPSIS, UNSPECIFIED ORGANISM Qualifiers: Sepsis type: sepsis due to unspecified organism Qualified Code(s): A41.9 - Sepsis, unspecified organism
[2017-04-01] MEDS ORDERED: LACTULOSE 20 GM/30 ML UDC (FOR ORAL USE ONLY) PO PRN (17:15)
[2017-04-01] MEDS: LORazepam 1 MG TABLET PO SCH (22:56)
[2017-04-02] MEDS ORDERED: PT OWN MED DRAWER 7, Y5N ONE ×2 (09:28→19:04)
[2017-04-02] MEDS: IBUPROFEN 400 MG TABLET (FP) PO SCH ×2 (09:35→22:12)
[2017-04-02] MEDS: CEFTRIAXONE 2 GM in DEXTROSE 5%-WATER - 100 ML IVPB SCH (09:36)
[2017-04-02] MEDS: DOCUSATE SODIUM 100 MG CAPSULE (FP) PO SCH ×2 (09:36→22:13)
[2017-04-02] MEDS: CITALOPRAM HYDROBROMIDE 20 MG TABLET (FP) PO SCH (09:36)
[2017-04-02] MEDS: guaiFENesin/CODEINE 10 ML UNIT-DOSE CUPS PO PRN ×2 (09:37→22:12)
[2017-04-02] MEDS: SODIUM CHLORIDE 1,000 ML IV SCH ×2 (09:40→22:12)
--- NOTE | 2017-04-02 14:48 | PN ---
Progress Note, Physician History of Present Illness: pulmonary alert,feeling better,less cp,less cough,+muhammad - Current Medication List Current Medications: Active Medications Bupropion HCl (Wellbutrin Xl -) 450 mg PO DAILY [facility] Last Admin: 04/02/17 09:36 Dose: 450 mg Citalopram Hydrobromide (Celexa -) 40 mg PO DAILY [facility] Last Admin: 04/02/17 09:36 Dose: 40 mg Docusate Sodium (Colace -) 100 mg PO BID [facility] Last Admin: 04/02/17 09:36 Dose: Not Given Guaifenesin (Robitussin -) 10 ml PO Q4H PRN PRN Reason: COUGH Last Admin: 03/31/17 10:34 Dose: 10 ml Guaifenesin/Codeine Phosphate (Robitussin Ac -) 10 ml PO Q8H PRN PRN Reason: COUGH Last Admin: 04/02/17 09:37 Dose: 10 ml Ceftriaxone Sodium 2 gm/ (Dextrose) 100 mls @ 200 mls/hr IVPB DAILY [facility] Last Admin: 04/02/17 09:36 Dose: 200 mls/hr Sodium Chloride (Normal Saline -) 1,000 mls @ 75 mls/hr IV ASDIR [facility] Last Admin: 04/02/17 09:40 Dose: 75 mls/hr Ibuprofen (Motrin -) 800 mg PO BID [facility] Last Admin: 04/02/17 09:35 Dose: 800 mg Lactulose (Cephulac (Oral Use)) 20 gm PO TID PRN PRN Reason: CONSTIPATION Lorazepam (Ativan -) 2 mg PO HS [facility] Last Admin: 04/01/17 22:56 Dose: 2 mg - Objective Vital Signs: Vital Signs Temperature 97.9 F 04/02/17 08:00 Pulse Rate 80 04/02/17 08:00 Respiratory Rate 20 04/02/17 09:00 Blood Pressure 106/64 04/02/17 08:00 O2 Sat by Pulse Oximetry (%) 97 04/02/17 09:00 Constitutional: Yes: Well Nourished, Calm Eyes: Yes: WNL HENT: Yes: WNL Neck: Yes: WNL Cardiovascular: Yes: Regular Rate and Rhythm, S1, S2 Respiratory: Yes: Rales (crackles r 1/3 up) Gastrointestinal: Yes: Normal Bowel Sounds, Soft Extremities: Yes: WNL Edema: No Labs: CBC, BMP 04/01/17 06:00 04/01/17 06:00 INR, PTT INR 1.19 (0.82-1.09) H 03/29/17 11:00 Problem List - Problems (1) Asthma Code(s): J45.909 - UNSPECIFIED ASTHMA, UNCOMPLICATED (2) Community acquired pneumonia Code(s): J18.9 - PNEUMONIA, UNSPECIFIED ORGANISM (3) Acute kidney injury Code(s): N17.9 - ACUTE KIDNEY FAILURE, UNSPECIFIED Assessment/Plan A/P Community Acquired Pneumonia clinically improving +Strep Ag Anxiety RAMY improving - antibiotics - pain control - incentive spirometry - CT imaging in 6-8 weeks to ensure resolution of infiltrates - DVT prophylaxis DR SOLIS
--- NOTE | 2017-04-02 18:54 | PN ---
Progress Note, Physician History of Present Illness: Pt states she feels better overall. Denies still with some dyspnea, cough, no fever/chills. - Current Medication List Current Medications: Active Medications Bupropion HCl (Wellbutrin Xl -) 450 mg PO DAILY [facility] Last Admin: 04/02/17 09:36 Dose: 450 mg Citalopram Hydrobromide (Celexa -) 40 mg PO DAILY [facility] Last Admin: 04/02/17 09:36 Dose: 40 mg Docusate Sodium (Colace -) 100 mg PO BID [facility] Last Admin: 04/02/17 09:36 Dose: Not Given Guaifenesin (Robitussin -) 10 ml PO Q4H PRN PRN Reason: COUGH Last Admin: 03/31/17 10:34 Dose: 10 ml Guaifenesin/Codeine Phosphate (Robitussin Ac -) 10 ml PO Q8H PRN PRN Reason: COUGH Last Admin: 04/02/17 09:37 Dose: 10 ml Ceftriaxone Sodium 2 gm/ (Dextrose) 100 mls @ 200 mls/hr IVPB DAILY [facility] Last Admin: 04/02/17 09:36 Dose: 200 mls/hr Sodium Chloride (Normal Saline -) 1,000 mls @ 75 mls/hr IV ASDIR [facility] Last Admin: 04/02/17 09:40 Dose: 75 mls/hr Ibuprofen (Motrin -) 800 mg PO BID [facility] Last Admin: 04/02/17 09:35 Dose: 800 mg Lactulose (Cephulac (Oral Use)) 20 gm PO TID PRN PRN Reason: CONSTIPATION Lorazepam (Ativan -) 2 mg PO HS [facility] Last Admin: 04/01/17 22:56 Dose: 2 mg - Objective Vital Signs: Vital Signs Temperature 98.3 F 04/02/17 18:00 Pulse Rate 80 04/02/17 08:00 Respiratory Rate 20 04/02/17 18:00 Blood Pressure 115/72 04/02/17 18:00 O2 Sat by Pulse Oximetry (%) 97 04/02/17 09:00 Constitutional: Yes: No Distress Cardiovascular: Yes: Regular Rate and Rhythm Respiratory: Yes: Rales (Rt lower lung) Gastrointestinal: Yes: Normal Bowel Sounds, Soft Genitourinary: Yes: WNL Musculoskeletal: Yes: WNL Extremities: Yes: WNL Labs: CBC, BMP 04/01/17 06:00 04/01/17 06:00 INR, PTT INR 1.19 (0.82-1.09) H 03/29/17 11:00 Problem List - Problems (1) Community acquired pneumonia Code(s): J18.9 - PNEUMONIA, UNSPECIFIED ORGANISM (2) Acute kidney injury Code(s): N17.9 - ACUTE KIDNEY FAILURE, UNSPECIFIED (3) Asthma Code(s): J45.909 - UNSPECIFIED ASTHMA, UNCOMPLICATED (4) Sepsis Code(s): A41.9 - SEPSIS, UNSPECIFIED ORGANISM Qualifiers: Sepsis type: sepsis due to unspecified organism Qualified Code(s): A41.9 - Sepsis, unspecified organism Assessment/Plan CAP / Sepsis - wbc trending down, afebrile - renal function improved - cont current antibiotic repeat cbc
--- NOTE | 2017-04-02 20:02 | PN ---
Progress Note, Physician History of Present Illness: feeling better, still has cough - Current Medication List Current Medications: Active Medications Bupropion HCl (Wellbutrin Xl -) 450 mg PO DAILY [facility] Last Admin: 04/02/17 09:36 Dose: 450 mg Citalopram Hydrobromide (Celexa -) 40 mg PO DAILY [facility] Last Admin: 04/02/17 09:36 Dose: 40 mg Docusate Sodium (Colace -) 100 mg PO BID [facility] Last Admin: 04/02/17 09:36 Dose: Not Given Guaifenesin (Robitussin -) 10 ml PO Q4H PRN PRN Reason: COUGH Last Admin: 03/31/17 10:34 Dose: 10 ml Guaifenesin/Codeine Phosphate (Robitussin Ac -) 10 ml PO Q8H PRN PRN Reason: COUGH Last Admin: 04/02/17 09:37 Dose: 10 ml Ceftriaxone Sodium 2 gm/ (Dextrose) 100 mls @ 200 mls/hr IVPB DAILY [facility] Last Admin: 04/02/17 09:36 Dose: 200 mls/hr Sodium Chloride (Normal Saline -) 1,000 mls @ 75 mls/hr IV ASDIR [facility] Last Admin: 04/02/17 09:40 Dose: 75 mls/hr Ibuprofen (Motrin -) 800 mg PO BID [facility] Last Admin: 04/02/17 09:35 Dose: 800 mg Lactulose (Cephulac (Oral Use)) 20 gm PO TID PRN PRN Reason: CONSTIPATION Lorazepam (Ativan -) 2 mg PO HS [facility] Last Admin: 04/01/17 22:56 Dose: 2 mg - Objective Vital Signs: Vital Signs Temperature 98.4 F 04/02/17 18:30 Pulse Rate 69 04/02/17 18:30 Respiratory Rate 20 04/02/17 18:30 Blood Pressure 189/78 04/02/17 18:30 O2 Sat by Pulse Oximetry (%) 97 04/02/17 09:00 Constitutional: Yes: No Distress HENT: Yes: Atraumatic Neck: Yes: Supple Cardiovascular: Yes: Regular Rate and Rhythm Respiratory: Yes: CTA Bilaterally Gastrointestinal: Yes: Normal Bowel Sounds Extremities: Yes: WNL Neurological: Yes: Alert, Oriented Labs: CBC, BMP 04/01/17 06:00 04/01/17 06:00 INR, PTT INR 1.19 (0.82-1.09) H 03/29/17 11:00 Problem List - Problems (1) Sepsis Assessment/Plan: ON IV ABX will start ivf as bp is low although her urine out put and po intake is sufficient prn cough syrup Code(s): A41.9 - SEPSIS, UNSPECIFIED ORGANISM Qualifiers: Sepsis type: sepsis due to unspecified organism Qualified Code(s): A41.9 - Sepsis, unspecified organism
[2017-04-02] MEDS: LORazepam 1 MG TABLET PO SCH (22:12)
[2017-04-03 08:11] LABS: MCH 29.8 pg (25.7-33.7); MEAN CELL VOLUME 90.3 fl (80-96); MEAN PLT VOLUME 9.4 fl (7.5-11.1); PLATELET COUNT 370 K/MM3 (134-434); RDW 14.1 % (11.6-15.6)
[2017-04-03] MEDS ORDERED: PT OWN MED DRAWER 7, Y5N ONE (09:28)
[2017-04-03] MEDS: CEFTRIAXONE 2 GM in DEXTROSE 5%-WATER - 100 ML IVPB SCH (09:42)
[2017-04-03] MEDS: CITALOPRAM HYDROBROMIDE 20 MG TABLET (FP) PO SCH (09:42)
[2017-04-03] MEDS: IBUPROFEN 400 MG TABLET (FP) PO SCH ×2 (09:42→21:15)
[2017-04-03] MEDS: guaiFENesin/CODEINE 10 ML UNIT-DOSE CUPS PO PRN (09:42)
[2017-04-03] MEDS: DOCUSATE SODIUM 100 MG CAPSULE (FP) PO SCH ×2 (09:43→21:15)
[2017-04-03 11:10] LABS: METAMYELOCYTE 2 % (0-2); MYELOCYTE 1 % (0-2); NUCLEATED RED BLOOD CELL 1 % (0-0); PLATELET ESTIMATE ADEQUATE; TOTAL CELLS COUNTED 100
[2017-04-03] MEDS: SODIUM CHLORIDE 1,000 ML IV SCH (13:21)
--- NOTE | 2017-04-03 14:34 | PN ---
Progress Note, Physician History of Present Illness: PULMONARY ALERT,FEELING BETTER,-SOB - Current Medication List Current Medications: Active Medications Bupropion HCl (Wellbutrin Xl -) 450 mg PO DAILY [facility] Last Admin: 04/03/17 09:43 Dose: 450 mg Citalopram Hydrobromide (Celexa -) 40 mg PO DAILY [facility] Last Admin: 04/03/17 09:42 Dose: 40 mg Docusate Sodium (Colace -) 100 mg PO BID [facility] Last Admin: 04/03/17 09:43 Dose: Not Given Guaifenesin (Robitussin -) 10 ml PO Q4H PRN PRN Reason: COUGH Last Admin: 03/31/17 10:34 Dose: 10 ml Ceftriaxone Sodium 2 gm/ (Dextrose) 100 mls @ 200 mls/hr IVPB DAILY [facility] Last Admin: 04/03/17 09:42 Dose: 200 mls/hr Sodium Chloride (Normal Saline -) 1,000 mls @ 75 mls/hr IV ASDIR [facility] Last Admin: 04/03/17 13:21 Dose: 75 mls/hr Ibuprofen (Motrin -) 800 mg PO BID [facility] Last Admin: 04/03/17 09:42 Dose: 800 mg Lactulose (Cephulac (Oral Use)) 20 gm PO TID PRN PRN Reason: CONSTIPATION Lorazepam (Ativan -) 2 mg PO HS [facility] Last Admin: 04/02/17 22:12 Dose: 2 mg - Objective Vital Signs: Vital Signs Temperature 98.3 F 04/03/17 10:00 Pulse Rate 73 04/03/17 10:00 Respiratory Rate 18 04/03/17 10:00 Blood Pressure 115/75 04/03/17 10:00 O2 Sat by Pulse Oximetry (%) 97 04/02/17 21:00 Constitutional: Yes: Well Nourished, Calm Eyes: Yes: WNL HENT: Yes: WNL Neck: Yes: WNL Cardiovascular: Yes: Regular Rate and Rhythm, S1, S2 Respiratory: Yes: Rales (CRACKLES R) Gastrointestinal: Yes: Normal Bowel Sounds, Soft Extremities: Yes: WNL Edema: No Labs: CBC, BMP 04/03/17 06:00 04/01/17 06:00 INR, PTT INR 1.19 (0.82-1.09) H 03/29/17 11:00 Problem List - Problems (1) Asthma Code(s): J45.909 - UNSPECIFIED ASTHMA, UNCOMPLICATED (2) Community acquired pneumonia Code(s): J18.9 - PNEUMONIA, UNSPECIFIED ORGANISM (3) Acute kidney injury Code(s): N17.9 - ACUTE KIDNEY FAILURE, UNSPECIFIED
--- NOTE | 2017-04-03 15:03 | PN ---
Progress Note, Physician History of Present Illness: Pt afebrile but still with persistent cough and Rt sided chest pain. No shortness of breath. - Current Medication List Current Medications: Active Medications Bupropion HCl (Wellbutrin Xl -) 450 mg PO DAILY [facility] Last Admin: 04/03/17 09:43 Dose: 450 mg Citalopram Hydrobromide (Celexa -) 40 mg PO DAILY [facility] Last Admin: 04/03/17 09:42 Dose: 40 mg Docusate Sodium (Colace -) 100 mg PO BID [facility] Last Admin: 04/03/17 09:43 Dose: Not Given Guaifenesin (Robitussin -) 10 ml PO Q4H PRN PRN Reason: COUGH Last Admin: 03/31/17 10:34 Dose: 10 ml Ceftriaxone Sodium 2 gm/ (Dextrose) 100 mls @ 200 mls/hr IVPB DAILY [facility] Last Admin: 04/03/17 09:42 Dose: 200 mls/hr Sodium Chloride (Normal Saline -) 1,000 mls @ 75 mls/hr IV ASDIR [facility] Last Admin: 04/03/17 13:21 Dose: 75 mls/hr Ibuprofen (Motrin -) 800 mg PO BID [facility] Last Admin: 04/03/17 09:42 Dose: 800 mg Lactulose (Cephulac (Oral Use)) 20 gm PO TID PRN PRN Reason: CONSTIPATION Lorazepam (Ativan -) 2 mg PO HS [facility] Last Admin: 04/02/17 22:12 Dose: 2 mg - Objective Vital Signs: Vital Signs Temperature 98.3 F 04/03/17 10:00 Pulse Rate 73 04/03/17 10:00 Respiratory Rate 18 04/03/17 10:00 Blood Pressure 115/75 04/03/17 10:00 O2 Sat by Pulse Oximetry (%) 97 04/03/17 09:00 Constitutional: Yes: No Distress Neck: Yes: Supple Cardiovascular: Yes: Regular Rate and Rhythm Respiratory: Yes: Rales (decreasing in Rt base, Lt clear) Extremities: Yes: WNL Edema: No Integumentary: Yes: WNL Neurological: Yes: Alert, Oriented Labs: CBC, BMP 04/03/17 06:00 04/01/17 06:00 INR, PTT INR 1.19 (0.82-1.09) H 03/29/17 11:00 Problem List - Problems (1) Community acquired pneumonia Code(s): J18.9 - PNEUMONIA, UNSPECIFIED ORGANISM (2) Acute kidney injury Code(s): N17.9 - ACUTE KIDNEY FAILURE, UNSPECIFIED (3) Asthma Code(s): J45.909 - UNSPECIFIED ASTHMA, UNCOMPLICATED (4) Sepsis Code(s): A41.9 - SEPSIS, UNSPECIFIED ORGANISM Qualifiers: Sepsis type: sepsis due to unspecified organism Qualified Code(s): A41.9 - Sepsis, unspecified organism Assessment/Plan Multifocal PNA R>L Asthma s/p sepsis - wbc trending down, afebrile, still with persistent cough/pleurisy - cont Ceftriaxone, consider repeat cxr
[2017-04-03] MEDS: guaiFENesin 200 MG/10 ML 10 ML UNIT-DOSE CUPS PO PRN ×2 (17:23→21:36)
--- NOTE | 2017-04-03 18:00 | PN ---
Progress Note, Physician - Current Medication List Current Medications: Active Medications Bupropion HCl (Wellbutrin Xl -) 450 mg PO DAILY [facility] Last Admin: 04/03/17 09:43 Dose: 450 mg Citalopram Hydrobromide (Celexa -) 40 mg PO DAILY [facility] Last Admin: 04/03/17 09:42 Dose: 40 mg Docusate Sodium (Colace -) 100 mg PO BID [facility] Last Admin: 04/03/17 09:43 Dose: Not Given Guaifenesin (Robitussin -) 10 ml PO Q4H PRN PRN Reason: COUGH Last Admin: 04/03/17 17:23 Dose: 10 ml Ceftriaxone Sodium 2 gm/ (Dextrose) 100 mls @ 200 mls/hr IVPB DAILY [facility] Last Admin: 04/03/17 09:42 Dose: 200 mls/hr Ibuprofen (Motrin -) 800 mg PO BID [facility] Last Admin: 04/03/17 09:42 Dose: 800 mg Lactulose (Cephulac (Oral Use)) 20 gm PO TID PRN PRN Reason: CONSTIPATION Lorazepam (Ativan -) 2 mg PO HS [facility] Last Admin: 04/02/17 22:12 Dose: 2 mg - Objective Vital Signs: Vital Signs Temperature 98.2 F 04/03/17 16:15 Pulse Rate 74 04/03/17 16:15 Respiratory Rate 20 04/03/17 16:15 Blood Pressure 128/92 04/03/17 16:15 O2 Sat by Pulse Oximetry (%) 97 04/03/17 09:00 Constitutional: Yes: No Distress HENT: Yes: Atraumatic Neck: Yes: Supple Cardiovascular: Yes: Regular Rate and Rhythm Respiratory: Yes: CTA Bilaterally, Rhonchi Gastrointestinal: Yes: Normal Bowel Sounds Extremities: Yes: WNL Neurological: Yes: Alert, Oriented Labs: CBC, BMP 04/03/17 06:00 04/01/17 06:00 INR, PTT INR 1.19 (0.82-1.09) H 03/29/17 11:00 Problem List - Problems (1) Sepsis Assessment/Plan: ON IV ABX will switc h to po dc planning for tomorrow if cleared by id prn cough syrup Code(s): A41.9 - SEPSIS, UNSPECIFIED ORGANISM Qualifiers: Sepsis type: sepsis due to unspecified organism Qualified Code(s): A41.9 - Sepsis, unspecified organism
[2017-04-03] MEDS: LORazepam 1 MG TABLET PO SCH (21:15)
[2017-04-04 08:27] LABS: ANION GAP 6 (8-16); BILIRUBIN,TOTAL 0.6 mg/dL (0.2-1.0); CALCIUM 7.5 mg/dL (8.5-10.1); CO2 26 mmol/L (21-32); CREATININE 0.6 mg/dL (0.55-1.02); GLUCOSE,RANDOM 69 mg/dL (74-106); SGOT/AST 26 U/L (15-37); SGPT/ALT 41 U/L (12-78); TOT PROT 5.2 g/dl (6.4-8.2)
[2017-04-04 08:36] LABS: MCH 30.2 pg (25.7-33.7); MCHC 33.5 g/dl (32.0-36.0); MEAN CELL VOLUME 90.1 fl (80-96); MEAN PLT VOLUME 9.3 fl (7.5-11.1); PLATELET COUNT 476 K/MM3 (134-434); RDW 14.2 % (11.6-15.6); WHITE BLOOD COUNT 10.9 K/mm3 (4.0-10.0)
[2017-04-04 08:39] LABS: ALBUMIN 1.8 g/dl (3.4-5.0); ALK PHOS 421 U/L (45-117)
[2017-04-04] MEDS ORDERED: PT OWN MED DRAWER 7, Y5N ONE (09:18)
[2017-04-04] MEDS: DOCUSATE SODIUM 100 MG CAPSULE (FP) PO SCH (09:19)
[2017-04-04] MEDS: CITALOPRAM HYDROBROMIDE 20 MG TABLET (FP) PO SCH (09:19)
[2017-04-04] MEDS: IBUPROFEN 400 MG TABLET (FP) PO SCH (09:19)
[2017-04-04 09:49] LABS: METAMYELOCYTE 5 % (0-2); MYELOCYTE 1 % (0-2); NUCLEATED RED BLOOD CELL 2 % (0-0); TOTAL CELLS COUNTED 100
[2017-04-04 09:50] LABS: PLATELET ESTIMATE SLT INCREASE
[2017-04-04] MEDS: CEFTRIAXONE 2 GM in DEXTROSE 5%-WATER - 100 ML IVPB SCH (10:17)
[2017-04-04 10:59] VITALS: BP 125/80; PULSE 73; TEMP 97.9
[2017-04-04] MEDS: guaiFENesin 200 MG/10 ML 10 ML UNIT-DOSE CUPS PO PRN (14:57)
--- NOTE | 2017-04-04 15:28 | PN ---
Progress Note, Physician History of Present Illness: Pt remains afebrile, still with dry cough but no shortness of breath or chest pain. Tolerating antibiotics, no abd pain/n/v/d. No new complaints. - Current Medication List Current Medications: Active Medications Bupropion HCl (Wellbutrin Xl -) 450 mg PO DAILY [facility] Last Admin: 04/04/17 09:20 Dose: 450 mg Citalopram Hydrobromide (Celexa -) 40 mg PO DAILY [facility] Last Admin: 04/04/17 09:19 Dose: 40 mg Docusate Sodium (Colace -) 100 mg PO BID [facility] Last Admin: 04/04/17 09:19 Dose: 100 mg Guaifenesin (Robitussin -) 10 ml PO Q4H PRN PRN Reason: COUGH Last Admin: 04/04/17 14:57 Dose: 10 ml Ceftriaxone Sodium 2 gm/ (Dextrose) 100 mls @ 200 mls/hr IVPB DAILY [facility] Last Admin: 04/04/17 10:17 Dose: 200 mls/hr Ibuprofen (Motrin -) 800 mg PO BID [facility] Last Admin: 04/04/17 09:19 Dose: 800 mg Lactulose (Cephulac (Oral Use)) 20 gm PO TID PRN PRN Reason: CONSTIPATION Lorazepam (Ativan -) 2 mg PO HS [facility] Last Admin: 04/03/17 21:15 Dose: 2 mg - Objective Vital Signs: Vital Signs Temperature 97.9 F 04/04/17 10:00 Pulse Rate 73 04/04/17 10:00 Respiratory Rate 18 04/04/17 10:00 Blood Pressure 125/80 04/04/17 10:00 O2 Sat by Pulse Oximetry (%) 91 L 04/04/17 09:05 Constitutional: Yes: No Distress, Calm Neck: Yes: Supple Cardiovascular: Yes: Regular Rate and Rhythm Respiratory: Yes: Rales (Rt base) Gastrointestinal: Yes: Normal Bowel Sounds, Soft Genitourinary: Yes: WNL Extremities: Yes: WNL Edema: No Integumentary: Yes: WNL Neurological: Yes: Alert, Oriented Psychiatric: Yes: Alert Labs: CBC, BMP 04/04/17 06:00 04/04/17 06:00 INR, PTT INR 1.19 (0.82-1.09) H 03/29/17 11:00 Problem List - Problems (1) Community acquired pneumonia Code(s): J18.9 - PNEUMONIA, UNSPECIFIED ORGANISM (2) Acute kidney injury Code(s): N17.9 - ACUTE KIDNEY FAILURE, UNSPECIFIED (3) Asthma Code(s): J45.909 - UNSPECIFIED ASTHMA, UNCOMPLICATED (4) Sepsis Code(s): A41.9 - SEPSIS, UNSPECIFIED ORGANISM Qualifiers: Sepsis type: sepsis due to unspecified organism Qualified Code(s): A41.9 - Sepsis, unspecified organism Assessment/Plan 66 y.o. female admitted with shortness of breath, cough, and leukocytosis clinically has improved, leukocytosis resoved, remains afebrile -- for d/c home, suggest augmentin 875 po BID x 3 more days -- recommend f/u cxr in the next 1-2 wks, f/u with PMD pt instructed to seek medical attention if symptoms return or worsen
== END 2017-04-04 15:38 | disposition home or self-care (01) | DRG 871 ==
LOC: JER 09:52 → JERBED 12:35 → J8W 15:15
PROVIDERS: ADMIT Internal Medicine; ATTEND Internal Medicine
DX: A41.9 Sepsis, unspecified organism (principal); J18.9 Pneumonia, unspecified organism; N17.9 Acute kidney failure, unspecified; I10 Essential (primary) hypertension; F41.9 Anxiety disorder, unspecified; J45.909 Unspecified asthma, uncomplicated; I95.9 Hypotension, unspecified; B95.4 Other streptococcus as the cause of diseases classified elsewhere; K59.00 Constipation, unspecified
CPT/HCPCS: 36415; 71010-TC; 71250-TC; 80048; 80053; 81003; 81015; 82550; 82803; 83605; 84484; 85025; 85610; 85730; 86850; 86900; 86901; 87040; 87086; 87804; 87899; 93005; 93010; 94761; 99284-25

== ENCOUNTER 2022-04-29 12:52 | Emergency (ER) | payer OTHER ==
[2022-04-29 14:33] VITALS: BP 129/70; PULSE 92; RESP 19; TEMP 98.9; BMI 40.8
[2022-04-29] MEDS ORDERED: MECLIZINE HCL 25 MG TABLET (FP) PO ONE (16:15)
[2022-04-29] MEDS ORDERED: SODIUM CHLORIDE 500 ML IV STA (16:15)
[2022-04-29] MEDS ORDERED: MECLIZINE HCL 25 MG TABLET (FP) ONE (16:28)
[2022-04-29 17:18] LABS: ALBUMIN 3.8 g/dl (3.4-5.0); CALCIUM 9.2 mg/dL (8.5-10.1)
[2022-04-29 17:19] LABS: BLOOD UREA NITROGEN 19.3 mg/dL (7-18)
[2022-04-29 17:22] LABS: BASO % 0.5 % (0-2.0); BILIRUBIN,TOTAL 0.5 mg/dL (0.2-1); CREATININE 1.3 mg/dL (0.55-1.3); EOS % 0.5 % (0-4.5); HEMATOCRIT 42.5 % (32.4-45.2); HEMOGLOBIN 13.7 GM/dL (10.7-15.3); LYMPH % 31.6 % (8-40); MCH 28.1 pg (25.7-33.7); MCHC 32.2 g/dl (32.0-36.0); MEAN CELL VOLUME 87.4 fl (80-96); MEAN PLT VOLUME 8.2 fl (7.5-11.1); MONO % 6.5 % (3.8-10.2); NEUT % 60.9 % (42.8-82.8); PLATELET COUNT 365 10^3/uL (134-434); RBC 4.85 M/mm3 (3.60-5.2); RDW 14.5 % (11.6-15.6); TOT PROT 7.4 g/dl (6.4-8.2); WHITE BLOOD COUNT 10.3 K/mm3 (4.0-10.0)
[2022-04-29] MEDS ORDERED: MECLIZINE HCL 12.5 MG TABLET PO ONE (20:37)
[2022-04-29] MEDS ORDERED: MECLIZINE HCL 12.5 MG TABLET ONE (20:42)
[2022-04-29 21:16] LABS: EPI CELLS 2 /uL (0-25.1); HYALINE CASTS 1 /uL (0-3.1); PH,URINE 5.5 (5.0-8.0); URINE APPEARANCE CLEAR; URINE BACTERIA >9,000 /uL (0-1359); URINE BILIRUBIN NEGATIVE (NEGATIVE); URINE COLOR YELLOW; URINE GLUCOSE (UA) NEGATIVE (NEGATIVE); URINE KETONE TRACE (NEGATIVE); URINE LEUK ESTERASE 2+ (NEGATIVE); URINE NITRITE POSITIVE (NEGATIVE); URINE PROTEIN NEGATIVE (NEGATIVE); URINE RBC 10 /uL (0-23.9); URINE UROBILINOGEN 0.2 mg/dL (0.2-1.0); URINE WBC 202 /uL (0-25.8)
[2022-04-29] MEDS ORDERED: CEFTRIAXONE 1 GM in DEXTROSE 5%-WATER - 100 ML IVPB ONE (21:24)
[2022-04-29] MEDS ORDERED: CEFTRIAXONE 1 GM/50 ML BAG ONE (21:30)
== END 2022-04-29 22:08 | disposition home or self-care (01) ==
LOC: JER 12:52
PROC: 3E03329 Introduction of Other Anti-infective into Peripheral Vein, Percutaneous Approach (ICD-10-PCS; principal; 2022-04-29)
PROC: 3E0337Z Introduction of Electrolytic and Water Balance Substance into Peripheral Vein, Percutaneous Approach (ICD-10-PCS; 2022-04-29)
DX: N39.0 Urinary tract infection, site not specified (principal); R42 Dizziness and giddiness
CPT/HCPCS: 0241U-QW; 36415; 70450-TC; 80053; 81003; 82550; 83605; 84484; 85025; 93005; 93010; 99285-25